=== PATIENT | female | born 1970 | race Caucasian/White ===

== ENCOUNTER 2019-03-08 16:29 | Inpatient (IN) | payer OTHER ==
[~2019-03-08] VITALS: Ht 170.2 cm; Wt 143.3 kg
[2019-03-08] MEDS ORDERED: DILTIAZEM HCL 5 MG/ML 5 ML VIAL IV STA ×2 (16:50→17:28)
[2019-03-08 16:58] LABS: BASOPHILS % 0.3 % (0.0-1.0); EOSINOPHILS # (AUTO) 0.2 (0.0-0.4); EOSINOPHILS % 1.6 % (0.0-6.0); HEMATOCRIT 42.5 % (34.2-44.1); HEMOGLOBIN 13.7 g/dL (12.0-16.0); LYMPHOCYTES # (AUTO) 2.2 (1.0-3.2); LYMPHOCYTES % 22.2 % (18.0-39.1); MEAN CORPUSCULAR HEMOGLOBIN 30.1 pg (28-32); MEAN CORPUSCULAR HGB CONC 32.2 g/dL (31-35); MEAN CORPUSCULAR VOLUME 93.4 fL (81-99); MONOCYTES # (AUTO) 0.6 (0.2-0.8); MONOCYTES % 6.6 % (4.4-11.3); NEUTROPHILS # (AUTO) 6.7 (2.1-6.9); NEUTROPHILS % 68.7 % (38.7-80.0); PLATELET COUNT 176 x10e3/uL (140-360); RED BLOOD COUNT 4.55 x10e6/uL (3.6-5.1); RED CELL DISTRIBUTION WIDTH 14.6 % (11.7-14.4)
[2019-03-08] MEDS ORDERED: ASPIRIN 81 MG CHEW TAB PO ONE (17:00)
[2019-03-08] MEDS ORDERED: DILTIAZEM HCL VIAL 5 ML ONE (17:02)
[2019-03-08] MEDS ORDERED: GABAPENTIN300 MG PO (17:10)
[2019-03-08] MEDS ORDERED: METOPROLOL TART50 MG PO (17:10)
[2019-03-08] MEDS ORDERED: LISINOPRIL40 MG PO (17:10)
[2019-03-08] MEDS ORDERED: METHOCARBAMOL500 MG PO (17:10)
[2019-03-08] MEDS ORDERED: ALBUTEROL0.63 MG/3 INH (17:10)
[2019-03-08] MEDS ORDERED: MELOXICAM15 MG PO (17:10)
[2019-03-08] MEDS ORDERED: PROVENTIL HFA6.7 GM INH (17:10)
[2019-03-08 17:11] LABS: INR 0.96; PARTIAL THROMBOPLASTIN TIME 27.4 seconds (23.8-35.5); PROTHROMBIN TIME 13.3 seconds (11.9-14.5)
[2019-03-08 17:18] LABS: ALANINE AMINOTRANSFERASE 84 IU/L (0-55); ALBUMIN 3.3 g/dL (3.5-5.0); ALBUMIN/GLOBULIN RATIO 1.2 (0.8-2.0); ALKALINE PHOSPHATASE 69 IU/L (40-150); ANION GAP 14.1 mmol/L (8-16); BLOOD UREA NITROGEN 15 mg/dL (7-26); BUN/CREATININE RATIO 16 (6-25); CALCIUM 9.1 mg/dL (8.4-10.2); CARBON DIOXIDE 28 mmol/L (22-29); CHLORIDE 101 mmol/L (98-107); CREATINE KINASE 54 IU/L (29-168); CREATININE, SERUM 0.93 mg/dL (0.57-1.11); EST GLOMERULAR FILTRATION RATE > 60 ML/MIN (60-); GLUCOSE 125 mg/dL (74-118); MAGNESIUM 1.7 MG/DL (1.3-2.1); POTASSIUM 4.1 mmol/L (3.5-5.1); SODIUM 139 mmol/L (136-145)
[2019-03-08 17:40] LABS: THYROID STIMULATING HORMONE 1.816 uIU/mL (0.350-4.940)
--- NOTE | 2019-03-08 17:47 | Diagnostic Imaging Report ---
A single frontal view of the chest. HISTORY: A. Fib, RVR, feet and leg swelling COMPARISON: Chest radiograph March 07, 2009 DISCUSSION: Portable technique, limits sensitivity of the exam. Soft tissue attenuation partially limits sensitivity of the exam. Overlying artifacts. Tubes/Lines: None Lungs and pleura: Interval increased pulmonary interstitial markings with more confluent patchy airspace opacities of the mid to lower lungs. No definite pleural effusion or pneumothorax is identified. Heart and mediastinum: The cardiac silhouette and central pulmonary vasculature are increased in size. Bones and soft tissues: Appear unremarkable, given this limited exam. IMPRESSION: Findings compatible with volume overload resulting in central pulmonary vascular congestion and moderate pulmonary edema. Signed by: Dr. Booker Rondon D.O., M.M.M. on 03/08/2019 5:43 PM
[2019-03-08] MEDS ORDERED: FUROSEMIDE INJ 10 MG/ML 4 ML VIAL IV ONE (18:00)
[2019-03-08] MEDS ORDERED: NITROGLYCERIN 0.4 MG SUBL SL PRN (18:15)
[2019-03-08] MEDS ORDERED: ONDANSETRON HCL INJ 2MG/ML 2ML 2 MG/ML VIAL IV PRN (18:15)
[2019-03-08] MEDS: DILTIAZEM HCL 125 ML IV SCH (18:20)
--- OUTSIDE RECORDS SUMMARY | 2019-03-08 18:30 | XMS REPORT ---
Author [facility] Address Unknown Phone Unavailable Care Team Providers Care [employer] Name Role Phone Lola MARVIN Unavailable Unavailable Payers Payer Name Policy Type Policy Number Effective Date Expiration Date Problems This patient has no known problems. Allergies, Adverse Reactions, Alerts Allergy Name Allergy Type Status Severity Reaction(s) Onset Date Inactive Date Treating Clinician Comments morphine DA Active SV 2010-03-03 00:00:00 Medications This patient has no known medications. Results Test Description Test Time Test Comments Text Results Atomic Results Result Comments CHEST SINGLE (PORTABLE) 2019-03-08 17:42:00 [place] [address] Patient Name: NALDO LINDER MR #: [id number] : 1970 Age/Sex: 48/F Req #: [id number] Adm Physician: Ordered by: AIDE MARVIN MD Report #: [id number] Location: ER Room/Bed: Procedure: [id number] DX/CHEST SINGLE (PORTABLE) Exam Date: 03/08/19 Exam Time: 1725 REPORT STATUS: Signed A single frontal view of the chest. HISTORY: A. Fib, RVR, feet and leg swelling COMPARISON: Chest radiograph March 07, 2009 DISCUSSION: Portable technique, limits sensitivity of the exam. Soft tissue attenuation partially limits sensitivity of the exam. Overlying artifacts. Tubes/Lines: None Lungs and pleura: Interval increased pulmonary interstitial markings with more confluent patchy airspace opacities of the mid to lower lungs. No definite pleural effusion or pneumothorax is identified. Heart and mediastinum: The cardiac silhouette and central pulmonary vasculature are increased in size. Bones and soft tissues: Appear unremarkable, given this limited exam. IMPRESSION: Findings compatible with volume overload resulting in central pulmonary vascular congestion and moderate pulmonary edema. Signed by: Dr. Booker Rondon D.O., M.M.M. on 03/08/2019 5:43 PM Dictated By: BOOKER RONDON DO 42 Transcribed By: BELINDA on 03/08/191742 COPY TO: AIDE MARVIN MD - CT C-SPINE W/O CONTRAST 2018-06-09 17:04:00 Name: NALDO TORIBIO [facility] : 1970 Age/S: 48 / F [address] [facility] Unit #: [id number] Loc: [place] [address] Phys: Damir Vega MD Acct: [id number] Dis Date: Status: REG ER PHONE #: [phone] Exam Date: 06/09/2018 1621 FAX #: [phone] Reason: radiculopathy BUE EXAMS: CPT CODE: [id number] CT C-SPINE W/O CONTRAST 14405 EXAM: CT of the cervical spine without contrast; INFORMATION: Bilateral arm tingling; cervical radi culopathy; TECHNIQUE AND FINDINGS: CT dose reduction protocol; 2.5 mm axial scans; sagittal and coronal reconstructions. This good alignment of the cervical spine; vertebral bodies, the dens and posterior elements are intact. There is significant narrowing of the disc space C6/7 and to a lesser degree C5/6. This is associated with anterior osteophyte formation. Facet joints are intact. Paravertebral soft tissues are unremarkable. IMPRESSION: 1. No evidence of acute osseous trauma. 2. Degenerative disc disease and spondylosis of the lower cervical spine. at 1704 Reported and signed by: Gaudencio Pride M.D. CC: Damir Vega MD; Zac Reed III, MD Technologist:Ana Hodgson RT(R) CTDI: DLP: Trnscb Date/Time: 06/09/2018 (1704) YvonneGRW Orig Print D/T: S: 06/09/2018 (1708) CTDI: DLP: PAGE 1 Signed Report - CT HEAD/BRAIN W/O CONT 2018-06-09 16:34:00 Name: NALDO TORIBIO [facility] : 1970 Age/S: 48 / F [address] Unit #: [id number] Loc: [place] [address] Phys: Damir Vega MD Acct: [id number] Dis Date: Status: REG ER PHONE #: [phone] Exam Date: 06/09/2018 1552 FAX #: [phone] Reason: numbness, bp 200/120 EXAMS: CPT CODE: [id number] CT HEAD/BRAIN W/O CONT 67535 EXAM: CT of the head; INFORMATION: Hypertension, arms tingling; TECHNIQUE AND FINDINGS: CT dose reduction protocol; The ventricles are symmetric and of normal diameter; normal width of basilar cisterns and sulci; normal nickerson/white matter differentiation; no evidence of intra or extra-axial hemorrhage, mass lesion or midline shift. Bone windows show no abnormalities. IMPRESSION: Normal CT scan of the head. at 1634 Reported and signed by: Gaudencio Pride M.D. CC: Damir Vega MD; Zac Reed III, MD Technologist:Ana Hodgson RT(R); NATACHA Sandoval CTDI: DLP: Trnscb Date/Time: 06/09/2018 (1634) YvonneGRW Orig Print D/T: S: 06/09/2018 (1637) CTDI: DLP: PAGE 1 Signed Report - XR CHEST 1 V 2018-06-09 16:28:00 FAX: Damir Vega MD [phone] [place]: St: REG FAX: Y Zac Reed III [phone] Name: NALDO TORIBIO [facility] : 1970 Age/S: 48/F [address] [facility]: [id number] Loc: [place] [address] Phys: Damir Vega MD Acct: [id number] Dis Date: Status: REG ER PHONE #: [phone] Exam Date: 06/09/2018 1535 FAX #: [phone] Reason: CHEST PAIN EXAMS: CPT CODE: [id number] XR CHEST 1 V 81756 EXAM: Chest x-ray, one view; INFORMATION: Chest pain; FINDINGS: Lungs are clear; no infiltrates, no edema; no effusions, no pneumothorax. Unremarkable cardiac mediastinal silhouette. No change compared with a study from November 23, 2014. IMPRESSION: No evidence of active cardiopulmonary disease. at 8700 Reported and signed by: Gaudencio Pride M.D. CC: Damir Vega MD; Zac Reed III, MD Technologist: Axel Cavanaugh RT(R) Trnscrd Date/Time/By: 06/09/2018 (0735) : By: YvonneGRW Orig Print D/T: S: 06/09/2018 (3339) PAGE 1 Signed Report BASIC METABOLIC PANEL 2018-06-09 16:11:00 SODIUM (test code=NA) 137 mmol/L 136-145 POTASSIUM (test code=K) 4.1 mmol/L 3.5-5.1 CHLORIDE (test code=CL) 106.0 mmol/L 98-107 CARBON DIOXIDE (test code=CO2) 27.0 mmol/L 21-32 ANION GAP (test code=GAP) 8.1 10-20 GLUCOSE (test code=GLU) 135 mg/dL 74-106 BLOOD UREA NITROGEN (test code=BUN) 13 mg/dL 7-18 GLOMERULAR FILTRATION RATE (test code=GFR) > 60 mL/min >=60 Estimated GFR by using Modified MDRD formula.Chronic kidney disease is defined as either kidney damageor GFR <60 mL/min/1.73 m2 for >3 months. CREATININE (test code=CREAT) 0.90 mg/dL 0.55-1.02 Note change in reference range due to change in reagent. BUN/CREATININE RATIO (test code=BUN/CREA) 14.5 10-20 CALCIUM (test code=CA) 8.6 mg/dL 8.5-10.1 HCG SERUM [id number] 16:11:00* Test Item Value Reference Range Comments HCG SERUM QUAL (test code=HCGQL) NEGATIVE NEGATIVE This HCGQL test is NOT applicable for MALE patients.Check with nurse about probable order error.If Tumor Marker Test needed, nurse should order test "HCGTU"(Test #550.36382) [id number] 16:11:00* Test Item Value Reference Range Comments TROPONIN-I (test code=TROPI) <0.015 ng/mL 0-0.045 BASIC METABOLIC [id number] 16:06:00* Test Item Value Reference Range Comments SODIUM (test code=NA) 137 mmol/L 136-145 POTASSIUM (test code=K) 4.1 mmol/L 3.5-5.1 CHLORIDE (test code=CL) 106.0 mmol/L 98-107 CARBON DIOXIDE (test code=CO2) mmol/L 21-32 ANION GAP (test code=GAP) 10-20 GLUCOSE (test code=GLU) mg/dL 74-106 BLOOD UREA NITROGEN (test code=BUN) mg/dL 7-18 GLOMERULAR FILTRATION RATE (test code=GFR) mL/min >=60 CREATININE (test code=CREAT) mg/dL 0.55-1.02 BUN/CREATININE RATIO (test code=BUN/CREA) 10-20 CALCIUM (test code=CA) mg/dL 8.5-10.1 HCG SERUM [id number] 16:06:00* Test Item Value Reference Range Comments HCG SERUM QUAL (test code=HCGQL) NEGATIVE NEGATIVE This HCGQL test is NOT applicable for MALE patients.Check with nurse about probable order error.If Tumor Marker Test needed, nurse should order test "HCGTU"(Test #550.71340) [id number] 16:06:00* Test Item Value Reference Range Comments TROPONIN-I (test code=TROPI) ng/mL 0-0.045 BASIC METABOLIC [id number] 16:02:00* Test Item Value Reference Range Comments SODIUM (test code=NA) 137 mmol/L 136-145 POTASSIUM (test code=K) 4.1 mmol/L 3.5-5.1 CHLORIDE (test code=CL) 106.0 mmol/L 98-107 CARBON DIOXIDE (test code=CO2) mmol/L 21-32 ANION GAP (test code=GAP) 10-20 GLUCOSE (test code=GLU) mg/dL 74-106 BLOOD UREA NITROGEN (test code=BUN) mg/dL 7-18 GLOMERULAR FILTRATION RATE (test code=GFR) mL/min >=60 CREATININE (test code=CREAT) mg/dL 0.55-1.02 BUN/CREATININE RATIO (test code=BUN/CREA) 10-20 CALCIUM (test code=CA) mg/dL 8.5-10.1 HCG SERUM [id number] 16:02:00* Test Item Value Reference Range Comments HCG SERUM QUAL (test code=HCGQL) NEGATIVE [id number] 16:02:00* Test Item Value Reference Range Comments TROPONIN-I (test code=TROPI) ng/mL 0-0.045 CBC W/O [id number] 15:57:00* Test Item Value Reference Range Comments WHITE BLOOD CELL (test code=WBC) 10.1 K/mm3 4.5-12.5 RED BLOOD CELL (test code=RBC) 4.82 mill/mm3 3.7-5.2 HEMOGLOBIN (test code=HGB) 13.7 gram/dL 11.5-15.5 HEMATOCRIT (test code=HCT) 44.8 % 36.0-46.0 MEAN CELL VOLUME (test code=MCV) 92.9 fL 80-98 MEAN CELL HGB (test code=MCH) 28.4 picogram 27.0-33.0 MEAN CELL HGB CONCETRATION (test code=MCHC) 30.6 gram/dL 33.0-36.0 RED CELL DISTRIBUTION WIDTH (test code=RDW) 14.4 % 11.6-16.2 PLATELET COUNT (test code=PLT) 195 K/mm3 150-450 MEAN PLATELET VOLUME (test code=MPV) 13.0 fL 6.7-11.0
[2019-03-08] MEDS: FAMOTIDINE 20 MG/2 ML VIAL IV SCH (18:32)
[2019-03-08] MEDS: ENOXAPARIN SODIUM INJ 100 MG/ML SYR SC SCH (18:32)
[2019-03-08 18:52] LABS: BILIRUBIN,URINE NEGATIVE (NEGATIVE); CLARITY,URINE SL CLOUDY (CLEAR); KETONES,URINE NEGATIVE (NEGATIVE); LEUKOCYTE ESTERASE ,URINE NEGATIVE (NEGATIVE); NITRITE,URINE NEGATIVE (NEGATIVE); PROTEIN,URINE DIPSTICK NEGATIVE (NEGATIVE); URINE UROBILINOGEN 0.2 mg/dL (0.2 - 1)
[2019-03-08 18:53] LABS: COLOR,URINE STRAW (YELLOW)
[2019-03-08 18:54] LABS: PREGNANCY TEST, URINE NEGATIVE (NEGATIVE)
[2019-03-08 19:04] LABS: BACTERIA,URINE RARE /HPF; EPITHELIAL CELLS,URINE FEW /LPF; RBC,URINE 21-50 /HPF (0-5)
[2019-03-08] MEDS ORDERED: METHYLPREDNISOLONE SOD SUCC 125 MG/2ML VIAL IV ONE (19:15)
[2019-03-08 20:00] VITALS: BP 167/94
[2019-03-08 20:15] VITALS: BP 167/96
[2019-03-08] MEDS ORDERED: INFLUENZA VIRUS VAC SPLIT INJ 0.5 ML SYR IM SCH (20:24)
[2019-03-08 21:00] VITALS: BP 131/96
[2019-03-08 22:00] VITALS: BP 149/103
[2019-03-08 22:41] LABS: CREATINE KINASE MB 1.4 ng/mL (0-5.0)
[2019-03-08 23:00] VITALS: BP 134/100
[2019-03-09] VITALS (15 sets, daily range): BP systolic 118–152; BP diastolic 89–121
[2019-03-09 05:02] LABS: BASOPHILS % 0.1 % (0.0-1.0); EOSINOPHILS # (AUTO) 0.2 (0.0-0.4); EOSINOPHILS % 2.1 % (0.0-6.0); HEMATOCRIT 43.7 % (34.2-44.1); HEMOGLOBIN 14.2 g/dL (12.0-16.0); LYMPHOCYTES # (AUTO) 0.6 (1.0-3.2); MEAN CORPUSCULAR HEMOGLOBIN 29.5 pg (28-32); MEAN CORPUSCULAR HGB CONC 32.5 g/dL (31-35); MEAN CORPUSCULAR VOLUME 90.9 fL (81-99); MONOCYTES # (AUTO) 0.1 (0.2-0.8); MONOCYTES % 1.2 % (4.4-11.3); NEUTROPHILS # (AUTO) 7.1 (2.1-6.9); NEUTROPHILS % 88.4 % (38.7-80.0); PLATELET COUNT 160 x10e3/uL (140-360); RED BLOOD COUNT 4.81 x10e6/uL (3.6-5.1)
[2019-03-09 05:26] LABS: CREATINE KINASE MB 1.5 ng/mL (0-5.0)
[2019-03-09 05:45] LABS: ALANINE AMINOTRANSFERASE 78 IU/L (0-55); ALBUMIN 3.4 g/dL (3.5-5.0); ALBUMIN/GLOBULIN RATIO 1.1 (0.8-2.0); ALKALINE PHOSPHATASE 72 IU/L (40-150); BLOOD UREA NITROGEN 13 mg/dL (7-26); BUN/CREATININE RATIO 16 (6-25); CALCIUM 9.1 mg/dL (8.4-10.2); CARBON DIOXIDE 24 mmol/L (22-29); CHLORIDE 98 mmol/L (98-107); CHOL/HDL RATIO 2.2 (3.0-3.6); CHOLESTEROL 136 MD/DL (0-199); CREATININE, SERUM 0.81 mg/dL (0.57-1.11); EST GLOMERULAR FILTRATION RATE > 60 ML/MIN (60-); GLUCOSE 235 mg/dL (74-118); HDL CHOLESTEROL 62 MG/DL (40-60); LDL CHOLESTEROL 62 MG/DL (60-130); SODIUM 134 mmol/L (136-145); TRIGLYCERIDES 59 MG/DL (0-149)
[2019-03-09] MEDS: ENOXAPARIN SODIUM INJ 100 MG/ML SYR SC SCH (06:12)
[2019-03-09] MEDS: FAMOTIDINE 20 MG/2 ML VIAL IV SCH ×2 (06:12→18:01)
--- NOTE | 2019-03-09 07:55 | NUR ---
Spoke with Dr. Dontae Chung about patient needing an district court administrator consult. Denied order for consult
[2019-03-09] MEDS: ASPIRIN 81 MG ENTERIC COATED PO SCH (10:34)
[2019-03-09] MEDS ORDERED: AMIODARONE HCL 150 MG/100 ML BAG IV ONE (11:15)
[2019-03-09] MEDS: METHOCARBAMOL 500 MG TAB PO SCH ×4 (12:29→23:21)
[2019-03-09] MEDS: GABAPENTIN 300 MG CAP PO SCH ×3 (12:30→21:42)
[2019-03-09] MEDS: FUROSEMIDE INJ 10 MG/ML 4 ML VIAL IV SCH ×2 (12:45→21:42)
[2019-03-09] MEDS: AMIODARONE HCL 900 MG in DEXTROSE 5% 500ML 500 ML IV SCH ×2 (12:52→19:52)
[2019-03-09] MEDS ORDERED: AMIODARONE 900MG 500 ML IV ONE (12:54)
--- NOTE | 2019-03-09 17:39 | History and Physical ---
HISTORY OF PRESENT ILLNESS: She is a 48-year-old female patient of mine, presented to the emergency room, as the patient was sent from the office. The patient was having severe shortness of breath and leg swelling for 4 days. The patient was evaluated in the outpatient and the patient was found to have atrial fibrillation with rapid ventricular rate and the patient was having decompensated congestive heart failure, so the patient was sent to the hospital for further care. PAST MEDICAL HISTORY: Hypertensive heart disease, diabetes mellitus, history of atrial fibrillation and atrial fibrillation ablation in 2011. FAMILY HISTORY: Diabetes and heart disease with her father. SOCIAL HISTORY: The patient is a smoker. Denies using alcohol. MEDICATIONS: See from the list. REVIEW OF SYSTEMS: Shortness of breath, cough, and leg swelling and wheezing and weakness. PHYSICAL EXAMINATION: GENERAL: She is a middle-aged female patient, lying in the bed. The patient is in mild respiratory distress due to tachypnea. VITAL SIGNS: Temperature 98, pulse rate 116, blood pressure 130/80, and respiration rate 26. HEENT: JVD present. LUNGS: Bilateral basilar rales present. HEART: S1 and S2. Irregularly irregular. Systolic murmur present. ABDOMEN: Soft. Bowel sounds present. NEUROLOGICAL: No focal neurological deficit. EXTREMITIES: Pedal edema present. ADMITTING IMPRESSION/DIAGNOSES: Atrial fibrillation with rapid ventricular rate, hypertensive heart disease, decompensated congestive heart failure, diabetes mellitus, and morbid obesity. PLAN: The patient will be admitted with the above diagnosis. The patient will be treated with a Cardizem drip, Lovenox, and aspirin. We will obtain Cardiology consultation, Dr. Gutierres. Michael Chung MD [facility]/ALETHA /[id number]
[2019-03-09] MEDS: DILTIAZEM HCL 125 ML IV SCH (17:51)
[2019-03-09] MEDS: APIXABAN 5 MG TABLET PO SCH (18:00)
[2019-03-09] MEDS: METOPROLOL TARTRATE 50 MG TAB PO SCH (18:01)
[2019-03-09] MEDS ORDERED: DEXTROSE 50% SYRINGE 50 ML IV PRN (18:15)
--- NOTE | 2019-03-09 18:19 | Consultation ---
DATE OF CONSULTATION: 03/09/2019 REASON FOR CONSULTATION: Shortness of breath and lower extremity swelling. HISTORY OF PRESENT ILLNESS: This is a 48-year-old female with history of atrial fibrillation, status post atrial fibrillation ablation in 2011, hypertension, diabetes, asthma, and morbid obesity. The patient presents to her PCP with complaints of shortness of breath and lower extremity edema, was noted in atrial fibrillation with RVR, was sent to the ER for further evaluation. In the ER, the patient received Lasix and diltiazem IV and Cardiology was consulted to evaluate the patient. The patient is seen in ICU room 191, reports feels much better, however, continues with atrial fibrillation with RVR with the heart rate in the 120s. The patient reports for the past several days, in fact, about a week has been noted with shortness of breath, lower extremities edema, and orthopnea. However, in the past for 4 days, reports symptoms became worse, so went to go see her PCP, in which she was found to be in atrial fibrillation and instructed to go to the ER. Of note, the patient reports very similar symptoms back in 2011 and when she went to [facility] and immediately had an atrial fibrillation ablation. PAST MEDICAL HISTORY: Asthma, hypertension, diabetes, atrial fibrillation, left pulmonary embolism in 2011. PAST SURGICAL HISTORY: Atrial fibrillation ablation in 2011 at [facility], tubal ligation. SOCIAL HISTORY: She is . She works for [employer] She is positive for alcohol use, social and positive for tobacco use, reports half a pack per day. FAMILY HISTORY: Mother , apparently had a history of [place], status post CABG, stroke, and status post pacemaker implantation. Father, he is alive apparently with history of COPD. ALLERGIES: NO KNOWN ALLERGIES. HOME MEDICATIONS: Include: 1. Proventil as needed. 2. Metoprolol 50 mg twice a day. 3. Lisinopril 40 mg daily. 4. Gabapentin 300 mg t.i.d. 5. Mobic 15 mg once daily p.r.n. 6. Albuterol inhaler 2 puffs as needed q.4. 7. Symbicort 160-4.5 two puffs inhaler twice a day. REVIEW OF SYSTEMS: GENERAL: Denies any weight changes, fatigue, weakness, fevers, chills, or night sweats. SKIN: No rashes or sores. HEENT: Denies any nausea, vomiting, vision change, blurred vision, double vision, earache, epistaxis, sore throat, or swollen neck. CARDIAC: Denies any chest pains or any palpitations. Positive for dyspnea on exertion. Positive for orthopnea. Denies any PND. Positive for lower extremity edema. RESPIRATORY: Positive for shortness of breath and orthopnea. Positive for cough, dry. Denies any hemoptysis. GI: Reports good appetite. No nausea, vomiting, diarrhea, constipation, any melena, tarry or bloody stools. URINARY: Denies any frequency, urgency, polyuria, hematuria, or dysuria. VASCULAR: Positive for lower extremity edema. Denies any claudication. MUSCULOSKELETAL: Denies any muscle weakness. Positive for generalized joint pains, back pains. NEUROLOGIC: Denies any numbness, tingling, tremors, weakness, paralysis, fainting, or seizures. HEMATOLOGY: Denies any anemia or easy bruising. ENDOCRINE: Denies any heat or cold intolerance, polyuria, polydipsia, or polyphagia. PHYSICAL EXAMINATION: VITAL SIGNS: Height 67 inches, weight 316 pounds, BMI 49. Current vital signs, heart rate 125, blood pressure 149/113, respiratory rate 18, and pulse ox 96% on 2 L nasal cannula. GENERAL: Appears stated age, reliable informant, in no acute distress. SKIN: No rashes or bruises noted. HEENT: Normocephalic. Pupils are equal and reactive. Extraocular movements intact. Trachea midline. No JVD. No carotid bruit. HEART: Irregular rate and rhythm. No murmurs, clicks noted. LUNGS: Bilateral crackles noted in the bases. No wheezing or rales. ABDOMEN: Soft, nontender, and nondistended. No organomegaly noted. MUSCULOSKELETAL: Good muscle strength throughout. Positive +1 to 2 lower extremity edema. VASCULAR: +2 bilateral radial pulses, +1 DP, PT pulses bilaterally. NEUROLOGIC: Cranial nerves II through XII seem intact. LABORATORY DATA: Sodium 134, potassium 4.0, chloride 98, BUN 13, creatinine 0.8. Troponin 0.01, next 0.013, next 0.15. BNP 158. TSH 1.8. White count 8.0, hemoglobin 14, hematocrit 43, platelets 160. Chest x-ray showing pulmonary edema. EKG showing atrial fibrillation with RVR, heart rate 159. ASSESSMENT: 1. Atrial fibrillation with rapid ventricular response. 2. Pulmonary edema. 3. Hypertension. 4. Morbid obesity. 5. Asthma. 6. Diabetes. PLAN: 1. The patient presents to [facility] with atrial fibrillation RVR and volume overload. We will attempt to rhythm control with amiodarone therapy. 2. We will rate control with diltiazem. 3. Currently, the patient is on Lovenox. We will switch to Eliquis 5 mg twice a day. 4. Echo has been ordered, will be reviewed by Cardiology attending. 5. We will consult EP for possible atrial fibrillation ablation in the near future. 6. We will continue to monitor the patient and adjust cardiac therapy as clinical course dictates. Thank you very much for this consult. SEEN AND EXAMINED AGREE WITH NOTE Dictated by Johnathan Pierce NP Rigoberto Gutierres MD DC/ALETHA /[id number] FRITZ
[2019-03-09] MEDS: INSULIN REGULAR, HUMAN 100 UNIT/1 ML 3ML VIAL SQ SCH (21:42)
[2019-03-09] MEDS: ALBUTEROL INH PRN (22:00)
[2019-03-10] VITALS (21 sets, daily range): BP systolic 118–160; BP diastolic 75–133
[2019-03-10 03:14] LABS: BASOPHILS % 0.2 % (0.0-1.0); EOSINOPHILS # (AUTO) 0.1 (0.0-0.4); EOSINOPHILS % 0.4 % (0.0-6.0); HEMATOCRIT 39.5 % (34.2-44.1); HEMOGLOBIN 12.9 g/dL (12.0-16.0); LYMPHOCYTES % 15.8 % (18.0-39.1); MEAN CORPUSCULAR HGB CONC 32.7 g/dL (31-35); MEAN CORPUSCULAR VOLUME 91.9 fL (81-99); MONOCYTES # (AUTO) 1.1 (0.2-0.8); MONOCYTES % 8.2 % (4.4-11.3); NEUTROPHILS # (AUTO) 9.7 (2.1-6.9); NEUTROPHILS % 74.9 % (38.7-80.0); PLATELET COUNT 193 x10e3/uL (140-360); RED CELL DISTRIBUTION WIDTH 14.3 % (11.7-14.4)
[2019-03-10 03:32] LABS: ALANINE AMINOTRANSFERASE 50 IU/L (0-55); ALBUMIN 2.9 g/dL (3.5-5.0); ALBUMIN/GLOBULIN RATIO 1.1 (0.8-2.0); ALKALINE PHOSPHATASE 70 IU/L (40-150); ANION GAP 12.3 mmol/L (8-16); BLOOD UREA NITROGEN 18 mg/dL (7-26); BUN/CREATININE RATIO 21 (6-25); CALCIUM 8.2 mg/dL (8.4-10.2); CARBON DIOXIDE 29 mmol/L (22-29); CHLORIDE 100 mmol/L (98-107); CREATININE, SERUM 0.84 mg/dL (0.57-1.11); EST GLOMERULAR FILTRATION RATE > 60 ML/MIN (60-); GLUCOSE 124 mg/dL (74-118); POTASSIUM 3.3 mmol/L (3.5-5.1); SODIUM 138 mmol/L (136-145)
[2019-03-10] MEDS: FAMOTIDINE 20 MG/2 ML VIAL IV SCH ×2 (05:13→17:40)
[2019-03-10] MEDS: METHOCARBAMOL 500 MG TAB PO SCH ×3 (05:13→17:40)
[2019-03-10] MEDS: ALBUTEROL INH PRN (05:47)
[2019-03-10] MEDS: INSULIN REGULAR, HUMAN 100 UNIT/1 ML 3ML VIAL SQ SCH ×3 (07:30→16:29)
[2019-03-10] MEDS ORDERED: LISINOPRIL 20 MG TAB PO SCH (09:00)
[2019-03-10] MEDS ORDERED: NON-FORMULARY MEDICATION (Lisinopril 40 MG) PO SCH (09:00)
[2019-03-10] MEDS: FUROSEMIDE INJ 10 MG/ML 4 ML VIAL IV SCH (09:14)
[2019-03-10] MEDS: ASPIRIN 81 MG ENTERIC COATED PO SCH (09:14)
[2019-03-10] MEDS: METOPROLOL TARTRATE 50 MG TAB PO SCH ×2 (09:14→17:00)
[2019-03-10] MEDS: GABAPENTIN 300 MG CAP PO SCH ×3 (09:14→17:40)
[2019-03-10] MEDS: APIXABAN 5 MG TABLET PO SCH ×2 (09:14→17:00)
[2019-03-10] MEDS ORDERED: AMIODARONE HCL 200 MG TAB PO SCH (10:30)
[2019-03-10] MEDS ORDERED: CEFTRIAXONE SOD 1 GM/NS 50 ML 50 ML IV ONE (11:00)
[2019-03-10] MEDS ORDERED: POTASSIUM CHLORIDE 20 MEQ TAB CR PO STA (11:42)
--- NOTE | 2019-03-10 13:25 | NUR ---
Nutrition Screen Note RD Recommendation for Physician: -Consider cardiac, ADA 1800 calorie diet per MD. Plan of Care: RD following, monitoring for tolerance and adequacy. Education provided. Nutrition reason for involvement: Diagnosis- CHF Primary Diagnose(s): Afib, CHF, morbid obesity PMH: Hypertensive heart disease, diabetes mellitus, history of atrial fibrillation and atrial fibrillation ablation in 2011. Ht:67 in Wt: 316 lb BMI: 49.5 kg/m2 IBW: [address] Assessment: 03/10: 48 YOF admitted for CHF with PMH listed above. The pt was seen resting in bed within the ICU. Pt was admitted with volume overload. The pt reported her appetite has been good and denied N/V/C/D/chewing or swallowing issues as well as any food allergies. Pt was open to receiving education regarding he low na diet and Dm diet, pt verbalized understanding. Spoke about pt in rounds, possible d/c to the floors today. 100% of her meals have been consumed. Chart reviewed. Labs and meds reviewed. Pt is on amiodarone, lasix and insulin. POC GM: 122-157. Will continue to monitor. Current Diet: Malnutrition Evaluation 03/10 The patient does not meet criteria for a specified degree of malnutrition at this time. Will re-evaluate at follow-up as appropriate. Diet Education Needs Assessment: Diet education indicated, pt accepted. Learner(s): pt Barriers: none Cultural/Language Modifications: none Readiness: acceptance Method: discussion, handout, teach back Topics: 2 gm Na, DM diet Understanding/Compliance: verbalized understanding, anticipate good compliance Nutrition Care Level: low Signed: Kayla Galvez, GALDINO, LD
[2019-03-10] MEDS ORDERED: POTASSIUM CHLORIDE 20 MEQ TAB CR PO SCH (14:00)
[2019-03-10] MEDS ORDERED: INSULIN LISPRO 100 UNIT/1 ML 3ML VIAL SQ SCH ×3 (15:15→21:00)
[2019-03-10] MEDS ORDERED: DEXTROSE 50% SYRINGE 50 ML IV PRN ×2 (15:30)
[2019-03-10] MEDS ORDERED: POTASSIUM CHLORIDE 20 MEQ TAB CR PO ONE (16:00)
[2019-03-10] MEDS ORDERED: METOPROLOL TARTRATE INJ 1 MG/ML VIAL IV ONE (17:45)
--- NOTE | 2019-03-10 17:45 | NUR ---
Dr. Spencer Gutierres called regarding patient's heart rate increase to 138 - 156 and sustained and in A-flutter. Patient denies any chest pain or discomfort. Daughter at bedside and here to take patient home. New orders received to give Metoprolol 5mg IV for elevated and sustained heart rate and given as ordered.
--- NOTE | 2019-03-10 18:15 | NUR ---
Patient resting comfortably in bed and heart rate has decreased to 99-102 in A-Flutter and patient has no complaints of chest pain or dizziness or palpitations. B/P 140/93 and Discharge prescriptions and orders given to her in writing and copy to chart. Daughter here to take her home and patient escorted via wheelchair to waiting SUV. Instructed to call Dr. Gutierres for any questions or further developments.
[2019-03-10] MEDS ORDERED: INSULIN GLARGINE 100 UNITS/ML VIAL SQ SCH (21:00)
--- NOTE | 2019-03-11 02:33 | Consultation ---
DATE OF CONSULTATION: 03/10/2019 REASON FOR CONSULT: Atrial fibrillation. HISTORY OF PRESENT ILLNESS: This is a 48-year-old woman with a history of paroxysmal atrial fibrillation. She underwent ablation procedure about 10 years ago. The patient states she had done well up until a month ago when she started feeling short of breath, having palpitations, presented to the hospital and found to have atrial flutter with rapid ventricular response. She is currently on amiodarone and better rate control. She feels better and is also taking anticoagulation right now. REVIEW OF SYSTEMS: CONSTITUTIONAL: Negative. CARDIOVASCULAR: As per HPI. RESPIRATORY: Negative. GASTROINTESTINAL: Negative. GENITOURINARY: Negative. MUSCULOSKELETAL: Negative. EYES: Negative. ENT: Negative. ALLERGY/IMMUNOLOGY: Negative. PSYCHIATRIC: Negative. PAST MEDICAL HISTORY: Atrial fibrillation. PAST SURGICAL HISTORY: Ablation procedure. SOCIAL HISTORY: Denies alcohol or smoking. FAMILY HISTORY: No premature coronary artery disease. PHYSICAL EXAMINATION: VITAL SIGNS: Blood pressure 118/60, pulse 90, respirations 20, and O2 sats 98%. GENERAL: In no acute distress. HEENT: Moist mucous membranes. CARDIOVASCULAR: Regular. RESPIRATORY: Few crackles at bases. ABDOMEN: Soft and nontender. MUSCULOSKELETAL: 2+ pedal pulses. NEUROLOGICAL: No focal deficits. SKIN: No lesions. PSYCHIATRIC: Normal thought process. EKG, atypical atrial flutter. IMPRESSION: 1. Atypical atrial flutter with associated cardiomyopathy with ejection fraction of approximately 45%. 2. History of atrial fibrillation ablation. RECOMMENDATIONS: Discussed with the patient in detail at this time, base approach is to repeat ablation of these atypical atrial flutter and atrial fibrillation. Explained the details to the patient, the alternatives as well as continue alternate therapy. The patient interested in ablation, went over details, benefits, and risks. She voices understanding and wishes to proceed. We will plan to continue amiodarone for now, also anticoagulation. Now that she is better rate controlled, she feels better. She can be discharged home and will arrange for procedure as an outpatient. We will arrange a transesophageal echocardiogram by Dr. Gutierres and we will plan for procedure as outpatient. Thank you for letting us to participate in Ms. Terrell's healthcare. MD SADIA Ireland/LACHELLEL /[id number]
--- NOTE | 2019-03-11 03:18 | Discharge Summary ---
She is a 48-year-old female patient, presented with a complaint of shortness of breath and pedal edema. ADMITTING IMPRESSION AND DIAGNOSES: Atrial fibrillation/flutter with rapid ventricular rate, decompensated congestive heart failure, diabetes mellitus, hypertension, and obesity. HOSPITAL COURSE SUMMARY: Ms. Fiorella Terrell was admitted in the intensive care unit. The patient was given IV Cardizem drip and also given amiodarone and Eliquis. The patient was started on Levaquin. The patient had venous Doppler study done, which was negative for DVT. The patient had echocardiogram done, this showed low EF of 35% to 40%. The patient had Cardiology evaluation done with Dr. Gutierres. Now upon stabilization, the patient will be sent home on Eliquis, p.o. amiodarone, Lasix 40 mg twice a day, metoprolol with lisinopril and Lasix. The patient also has low potassium, that will be supplemented. The patient will be followed up as an outpatient. The patient had Electrophysiology evaluation done by Dr. Arnold. The patient had a previous radiofrequency ablation was done, so the patient will be re-evaluated for treatment failure. The patient will be followed up by the Cardiology, EP as well as by me. The patient was started also on metformin for diabetes. The patient will be re-evaluated also for sleep apnea as an outpatient. MD CHIVO Rhodes/MODL /[id number]
== END 2019-03-10 19:10 | disposition home or self-care (01) | DRG 308 ==
LOC: ER 16:29 → ERHOLD 18:07 → ICU 20:09
PROVIDERS: ADMIT Internal Medicine; ATTEND Internal Medicine
DX: I48.91 Unspecified atrial fibrillation (principal); I50.31 Acute diastolic (congestive) heart failure; Z68.42 Body mass index [BMI] 45.0-49.9, adult; Z79.01 Long term (current) use of anticoagulants; I11.0 Hypertensive heart disease with heart failure; E66.01 Morbid (severe) obesity due to excess calories; F17.200 Nicotine dependence, unspecified, uncomplicated; E11.9 Type 2 diabetes mellitus without complications; J45.909 Unspecified asthma, uncomplicated; I42.9 Cardiomyopathy, unspecified; I48.4 Atypical atrial flutter; Z79.4 Long term (current) use of insulin
CPT/HCPCS: 36415; 71045; 80053; 80061; 81001; 81025; 82550; 82553; 82948; 83036; 83735; 83880; 84443; 84484; 85025; 85379; 85610; 85730; 87040; 87086; 87186; 93005; 93306; 93970; 96372; 99284; J0696; J1650; J1817; J1940; J2930

== ENCOUNTER → 2019-03-17 | Outpatient (CLI) | payer OTHER ==
[~2019-03-17] MED LIST: ALBUTEROL0.63 MG/3 INH; GABAPENTIN300 MG PO; LISINOPRIL40 MG PO; MELOXICAM15 MG PO; METHOCARBAMOL500 MG PO; METOPROLOL TART50 MG PO; PROVENTIL HFA6.7 GM INH
== END ==
LOC: MAMMO 13:25
PROVIDERS: ATTEND Internal Medicine
DX: Z12.31 Encounter for screening mammogram for malignant neoplasm of breast (principal)
CPT/HCPCS: 77067